=== PATIENT | female | born 1945 | race Caucasian/White ===

== ENCOUNTER → 2016-02-23 | Outpatient (CLI) | payer BC ==
[~2016-02-23] MED LIST: CALC1CAP36 PO; ERGO500037 PO; LPT10 PO; PLV75 PO; VERA360C2 PO
--- NOTE | 2016-02-23 09:36 | DIAGNOSTIC IMAGING REPORT ---
CT SCAN OF THE CHEST WITHOUT IV CONTRAST CLINICAL HISTORY: Thoracic aortic aneurysm. COMPARISON STUDY: Chest CT scans dated 02/24/2015 and 01/06/2013. TECHNIQUE: CT scan of the thorax was performed from the thoracic inlet to the upper abdomen. Images are reviewed in the axial, sagittal, and coronal planes. IV contrast was not administered for this examination as per the referring clinician. CT DOSE: 257.79 mGy.cm FINDINGS: Thyroid: Atrophic. A subcentimeter nodule is noted in the left lobe. Thoracic aorta: There is mild ectasia of the ascending thoracic aorta which measures up to 4.4 cm in diameter. The remainder of the thoracic aorta is normal in caliber. The mid arch measures up to 2.9 cm, and the descending thoracic aorta measures up to 2.9 cm. The arch demonstrates 4-vessel variant anatomy. No intramural hematoma is identified. Heart: The heart is normal in size and without pericardial effusion. There are scattered coronary artery calcifications. Lungs and pleural spaces: There is no airspace consolidation or pleural effusion. A 3 mm nodule at the left lung base as seen on image #253. This is unchanged from 2013 and of doubtful significance. The trachea and central airways are clear. Mediastinum: There is no mediastinal lymphadenopathy. Samanta: Not well assessed without IV contrast. Axillae: There is no axillary lymphadenopathy. Upper abdomen: Surgical clips are present in the left retroperitoneal space. A 10 mm cyst is noted in the right lobe of the liver. There are calcified splenic granulomas. Partially visualized upper abdominal viscera is otherwise grossly unremarkable. Skeletal structures: The skeletal structures are osteopenic. Mild degenerative change and scoliosis are identified in the thoracic spine. No lytic or blastic bony lesions are seen. IMPRESSION: 1. There is ectasia of the ascending thoracic aorta which measures up to 4.4 cm in diameter. This has not significantly changed dating back to 2012. 2. The remainder of the thoracic aorta is normal in caliber. 3. The lungs are clear. 4. Additional changes as above. Electronically signed by: Skyler Hernandez M.D. 02/23/2016 9:34 AM Dictated Date/Time: 02/23/2016 9:22 AM
== END | disposition home or self-care (01) ==
LOC: C.CTS 08:55
PROVIDERS: ATTEND Surgery Vascular Surgery
DX: I71.2 Thoracic aortic aneurysm, without rupture (principal)

== ENCOUNTER 2016-03-20 08:24 | Day surgery (SDC) | payer BC ==
[2016-03-06 08:16] VITALS: BMI 29.0
--- NOTE | 2016-03-06 08:54 | PAT Medication Instructions ---
Service Date Mar 06, 2016. Current Home Medication List Atorvastatin (Atorvastatin Calcium), 10 MG PO QPM Clopidogrel Bisulfate (Clopidogrel), 75 MG PO QAM Ergocalciferol (Vitamin D 07864 Unit), 50,000 UNIT PO 1XMONTH Verapamil Hcl (Verapamil Hcl Sr), 360 MG PO QPM Medication Instructions For Your Scheduled Surgery Clopidogrel Bisulfate (Clopidogrel), 75 MG PO QAM (hold 7 days prior to surgery per PCP instructions) Ergocalciferol (Vitamin D 31335 Unit), 50,000 UNIT PO 1XMONTH (continue as usual ) - Take the following medications as scheduled the night before surgery: Verapamil Hcl (Verapamil Hcl Sr), 360 MG PO QPM Atorvastatin (Atorvastatin Calcium), 10 MG PO QPM If you have any questions please call us at [phone] or [phone] ( [facility]) or [phone]
[~2016-03-20] VITALS: Ht 162.6 cm; Wt 75.8 kg
[~2016-03-20 08:24] MED LIST changes: -CALC1CAP36 PO; +CLINDAMYCIN IV 900 MG in DEXTROSE 5% ADD-VANTAGE 100ML 100 ML IV SCH; +LACTATED RINGER'S 1000ML 1,000 ML IV SCH
[2016-03-20 08:56] VITALS: BP 153/100; PULSE 85; TEMP 36.7; O2SAT 97; Ht 162.6 cm; Wt 75.8 kg
[2016-03-20] MEDS ORDERED: FENTANYL CITRATE INJ 50 MCG/1 ML 2 ML VIAL ONE ×2 (09:44→11:16)
[2016-03-20] MEDS ORDERED: MIDAZOLAM HCL 1 MG/ML 2ML VIAL ONE ×2 (09:44→09:45)
--- NOTE | 2016-03-20 10:09 | History & Physical Bridge Note ---
H&P Re-Evaluation Bridge Note: I have examined the patient, reviewed the History & Physical and in the interval since the performance of the History & Physical I have noted the following changes of clinical significance: No changes noted
[2016-03-20] MEDS ORDERED: LIDOCAINE HCL 1% 20 ML VIAL ONE (10:18)
[2016-03-20] MEDS ORDERED: BUPIVACAINE 0.5 % 5 MG/1 ML MPF 30ML VIAL ONE (10:18)
[2016-03-20] MEDS ORDERED: FENTANYL CITRATE INJ 50 MCG/1 ML 2 ML VIAL IV PRN (10:30)
[2016-03-20] MEDS ORDERED: ONDANSETRON INJ 2 MG/ML 2 ML VIAL IV PRN ×2 (10:30→12:00)
[2016-03-20] MEDS ORDERED: HYDROmorphone INJ 1 MG/ML SYR IV PRN (10:30)
[2016-03-20] MEDS ORDERED: ATROPINE SULFATE 0.1 MG/ML 5ML SYR IV PRN (10:30)
[2016-03-20] MEDS ORDERED: EpHEDrine SULFATE INJ 50 MG/ML AMP IV PRN (10:30)
[2016-03-20] MEDS ORDERED: LABETALOL HCL IV 5 MG/ML 20ML IV PRN (10:30)
[2016-03-20] MEDS ORDERED: MEPERIDINE HCL 25 MG/ML CARP IV PRN (10:30)
[2016-03-20] MEDS ORDERED: PROPOFOL IV EMULSION 10 MG/ML 20 ML VIAL IV ONE ×2 (11:18→11:36)
[2016-03-20] MEDS ORDERED: LIDOCAINE HCL 2% 2 ML VIAL (20MG/ML) ONE (11:19)
[2016-03-20] MEDS ORDERED: EpHEDrine SULFATE 50MG/5ML SYR ONE (11:19)
[2016-03-20] MEDS ORDERED: ONDANSETRON INJ 2 MG/ML 2 ML VIAL ONE (11:37)
[2016-03-20] MEDS ORDERED: SODIUM CHLORIDE 0.9% 1000ML 1,000 ML IV SCH (11:47)
--- NOTE | 2016-03-20 11:47 | [facility] Post Operative Brief Note ---
Immediate Operative Summary Operative Date Mar 20, 2016. Pre-Operative Diagnosis left inguinal hernia Post-Operative Diagnosis left inguinal hernia Procedure(s) Performed Left Inguinal Hernia Repair Surgeon Dr. Akash Carrasco Compensation And Benefits Manager Surgeon(s) Ivette Astudillo PA-C Estimated Blood Loss 10ML Findings See dictation Specimens none per surgeon Dr. Akash Carrasco Drains None Anesthesia General Complication(s) None Disposition Recovery Room / PACU
[2016-03-20] MEDS ORDERED: BUPIVACAINE 0.5 % 5 MG/1 ML MPF 30ML VIAL INJ ONE (11:48)
--- NOTE | 2016-03-20 11:51 | Discharge Instructions ---
Discharge Instructions Admission Reason for Admission: Left Inguinal Hernia Discharge Discharge Diagnosis / Problem: Same Discharge Goals Goal(s): Decrease discomfort Activity Recommendations Activity Limitations: per Instructions/Follow-up section Lifting Limitations: no more than 10 pounds Shower/Bathe: tomorrow (Shower only) . Current Hospital Diet Patient's current hospital diet: Discharge Diet Recommended Diet: Regular Diet Procedures Procedures Performed: Left Inguinal Hernia Repair Pending Studies Studies pending at discharge: no Medical Emergencies . Who to Call and When: Medical Emergencies: If at any time you feel your situation is an emergency, please call 911 immediately. . Non-Emergent Contact Non-Emergency issues call your: Primary Care Provider, Surgeon Call Non-Emergent contact if: your pain is worsening, wound has increased redness, wound has increased pain . "Provider Documentation" section prepared by Akash Carrasco. VTE Core Measure Inpt VTE Proph given/why not?: Other Anticoagulation (Clopidogrel)
[2016-03-20] MEDS ORDERED: MoRPHine SULFATE 4 MG/ML 1 ML CARP\\VIAL IV PRN (12:00)
[2016-03-20] MEDS ORDERED: OXYCODONE/ACETAMINOPHEN 5-325 TAB PO PRN (12:00)
--- NOTE | 2016-03-20 12:12 | OPERATIVE REPORT ---
DATE OF OPERATION: 03/20/2016 PREOPERATIVE DIAGNOSIS: Left inguinal hernia. POSTOPERATIVE DIAGNOSIS: Left indirect inguinal hernia. PROCEDURE: Repair of left indirect inguinal hernia. SURGEON: Dr. Carrasco. DIRECTOR OF COMMUNITY CENTER: Brandi Astudillo PA-C. FINDINGS: The patient had an indirect inguinal hernia that was moderate in size. They was attenuation of the floor of the canal, but no true direct component. TECHNIQUE: The patient was given a general anesthetic, and the area was prepped and draped in usual sterile fashion. Left inguinal incision was made, carried down through the subcutaneous tissue until the external oblique fascia was identified. A small incision was made in the external oblique and the underlying structures were off its undersurface and it was opened through the external ring. It was also opened superolaterally for a distance as well. The inguinal space was established and the hernia was identified. The hernia was away from the floor of the canal and the surrounding structures using blunt and cautery dissection where appropriate until it was freed to just inside the internal ring. It was placed into its anatomic position. The round ligament was identified. It was clamped proximally and distally and removed. Each end was ligated with a 3-0 Vicryl tie. The floor of the canal was oversewn using a running 0 PDS and then a piece of mesh was placed into the floor of the canal and sewn to the anterior surface of the internal oblique medially, tissue over the pubic bone inferiorly, and to the shelving border of the inguinal ligament laterally. The external oblique was closed over that using a running 2-0 Vicryl. The deep subcutaneous tissue was closed with running 2-0 Vicryl. The superficial subcutaneous tissue was closed with running 3-0 Vicryl and skin was closed with 4-0 Monocryl in a running subcuticular fashion. The skin was anesthetized with 0.5% Marcaine. The skin was cleansed, dried, benzoin placed, Steri-Strips applied. Estimated blood loss was 5 mL. Sponge, needle and instrument counts were correct prior to closure. The patient tolerated the surgical procedure without complication and was transferred to recovery. I attest to the content of the Intraoperative Record and any orders documented therein. Any exceptions are noted below. SILVIOD
[2016-03-20 12:40] VITALS: BP 106/69; PULSE 72; TEMP 36.5; O2SAT 94
--- NOTE | 2016-03-20 12:54 | Anesthesiology Progress Note ---
Anesthesia Post Op Note Date & Time Mar 20, 2016 at 12:55 Vital Signs Pain Intensity: 0 Vital Signs Past 12 Hours Date Time Temp Pulse Resp B/P Pulse Ox O2 Delivery O2 Flow Rate FiO2 03/20/16 12:40 36.5 72 18 106/69 94 Room Air 4 03/20/16 12:25 74 13 102/65 95 Room Air 03/20/16 12:15 76 18 108/70 99 Nasal Cannula 4 03/20/16 12:05 77 16 106/65 99 Nasal Cannula 4 03/20/16 11:56 37.0 83 12 106/62 93 Nasal Cannula 4 03/20/16 08:56 36.7 85 20 153/100 97 Room Air Notes Mental Status: alert / awake / arousable, participated in evaluation Pt Amnestic to Procedure: Yes Nausea / Vomiting: adequately controlled Pain: adequately controlled Airway Patency, RR, SpO2: stable & adequate BP & HR: stable & adequate Hydration State: stable & adequate Anesthetic Complications: no major complications apparent
[2016-03-20 13:10] VITALS: BP_SYST 105; BP_SYST 106; BP_DIAS 68; BP_DIAS 69; PULSE 70; PULSE 72; TEMP 36.5; O2SAT 93; O2SAT 94
[2016-03-20 13:50] VITALS: BP 93/66; PULSE 69; O2SAT 95
== END 2016-03-20 14:20 | disposition home or self-care (01) ==
LOC: C.ACU 08:24
PROVIDERS: ATTEND Surgery
DX: K40.90 Unilateral inguinal hernia, without obstruction or gangrene, not specified as recurrent (principal); E78.00 Pure hypercholesterolemia, unspecified; I10 Essential (primary) hypertension; I71.4 Abdominal aortic aneurysm, without rupture; Z86.73 Personal history of transient ischemic attack (TIA), and cerebral infarction without residual deficits

== ENCOUNTER → 2016-05-02 | Outpatient (CLI) | payer BC ==
[~2016-05-02] MED LIST changes: -CLINDAMYCIN IV 900 MG in DEXTROSE 5% ADD-VANTAGE 100ML 100 ML IV SCH; -LACTATED RINGER'S 1000ML 1,000 ML IV SCH
[2016-05-02 15:47] LABS: HEMATOCRIT 37.4 % (37-47); MEAN CELL VOLUME 91.4 fL (80-100); MEAN CORPUSCULAR HEMOGLOBIN 30.3 pg (25-34); MEAN CORPUSCULAR HGB CONC 33.2 g/dl (32-36); MEAN PLATELET VOLUME 9.9 fL (7.4-10.4); PLATELET COUNT 230 K/uL (130-400); RED BLOOD COUNT 4.09 M/uL (4.2-5.4); WHITE BLOOD COUNT 3.72 K/uL (4.8-10.8)
[2016-05-02 16:01] LABS: BLOOD UREA NITROGEN 20 mg/dl (7-18); BUN/CREATININE RATIO 16.4 (10-20); CARBON DIOXIDE 29 mmol/L (21-32); CHLORIDE 105 mmol/L (98-107); GLUCOSE 131 mg/dl (70-99); PHOSPHORUS 3.6 mg/dl (2.5-4.9); SODIUM 140 mmol/L (136-145); URINE APPEARANCE CLEAR (CLEAR); URINE BILIRUBIN NEG (NEG); URINE COLOR DK YELLOW; URINE NITRITE NEG (NEG); URINE PH 5.5 (4.5-7.5); URINE SPECIFIC GRAVITY 1.029 (1.000-1.030); UROBILINOGEN NEG (NEG)
[2016-05-02 16:04] LABS: MANUAL MICROSCOPIC REQUIRED? NO; REVIEW REQ? NO
[2016-05-02 16:13] LABS: URINE PROTIEN/CREAT RATIO 0.1 (0-0.2); URINE TOTAL PROTEIN 12.9 mg/dl (0-11.9)
== END | disposition home or self-care (01) ==
LOC: C.LAB1850 14:26
PROVIDERS: ATTEND Internal Medicine Nephrology
DX: N25.81 Secondary hyperparathyroidism of renal origin (principal); I12.9 Hypertensive chronic kidney disease with stage 1 through stage 4 chronic kidney disease, or unspecified chronic kidney disease; N18.3 Chronic kidney disease, stage 3 (moderate); D64.9 Anemia, unspecified

== ENCOUNTER → 2016-07-24 | Outpatient (CLI) | payer BC ==
--- NOTE | 2016-07-28 12:25 | CODING QUERY MEDICAL NECESSITY ---
SUPPORTING DIAGNOSIS NEEDED A supporting diagnosis is required for the test/procedure performed on this patient in order for us to be reimbursed by the patient's insurance. Please provide a supporting diagnosis for the following test/procedure listed below next to the test name along with your signature. *If there is no additional diagnosis for this patient that would support the following test/procedure please document that below next to the test/procedure. Test(s)/Procedure(s) that require a supporting diagnosis: * DXA, BONE DENSITY AXIAL DIAGNOSIS: Provider Signature: Date: Thank you Brandi [facility] Information Management Once completed, please kindly fax back to [phone] For questions please call [phone]
== END | disposition home or self-care (01) ==
LOC: C.MAMM 12:55
PROVIDERS: ATTEND Family Medicine
DX: Z00.00 Encounter for general adult medical examination without abnormal findings (principal)

== ENCOUNTER → 2016-10-24 | Outpatient (CLI) | payer BC ==
--- NOTE | 2016-10-25 14:19 | MAMMOGRAPHY REPORT ---
BILATERAL DIGITAL SCREENING MAMMOGRAM WITH CAD: 10/24/2016 CLINICAL HISTORY: Routine screening. Patient has no complaints. TECHNIQUE: Bilateral CC and MLO views were obtained. Current study was also evaluated with a Compute r Aided Detection (CAD) system. COMPARISON: Comparison is made to exams dated: 10/21/2015 mammogram, 10/16/2014 mammogram, 10/14/2013 mamm ogram, 09/24/2012 mammogram, 08/14/2011 mammogram, and 08/11/2010 mammogram - [facility] BREAST COMPOSITION: There are scattered areas of fibroglandular density in both breasts. FINDINGS: A focal asymmetry in the upper outer quadrant of the right breast is unchanged on prior brian mograms dating back to at least 05/17/2007, therefore likely benign. No new suspicious mass, archite ctural distortion or cluster of microcalcifications is seen. IMPRESSION: ACR BI-RADS CATEGORY 1: NEGATIVE There is no mammographic evidence of malignancy. A 1 year screening mammogram is recommended. The pa tient will receive written notification of the results. Approximately 10% of breast cancers are not detected with mammography. A negative mammographic report should not delay biopsy if a clinically suggestive mass is present. Saranya Payton M.D. ay/:10/24/2016 16:05:32 Guard Chief: Camelia Lovell, [facility] letter sent: Normal 1/2 BI-RADS Code: ACR BI-RADS Category 1: Negative
== END | disposition home or self-care (01) ==
LOC: C.MAMM 09:43
PROVIDERS: ATTEND Obstetrics & Gynecology
DX: Z12.31 Encounter for screening mammogram for malignant neoplasm of breast (principal)

== ENCOUNTER → 2016-10-30 | Outpatient (CLI) | payer BC | END | disposition home or self-care (01) | LOC: C.PAPS 13:41 | PROVIDERS: ATTEND Obstetrics & Gynecology | DX: Z12.4 Encounter for screening for malignant neoplasm of cervix (principal) ==

== ENCOUNTER → 2016-11-03 | Outpatient (CLI) | payer BC ==
--- NOTE | 2016-11-03 13:19 | DIAGNOSTIC IMAGING REPORT ---
C-SPINE ROUTINE 4 OR 5 VIEWS CLINICAL HISTORY: Chronic neck pain COMPARISON STUDY: No previous studies for comparison. FINDINGS: The prevertebral soft tissues are normal. No fractures or subluxations are visualized. There are moderate degenerative changes the C5-6 and C6-7 levels. There is bilateral foraminal encroachment due to uncinate spurring at the C5-6 and to a lesser extent the C6-7 levels. IMPRESSION: 1. No fractures or subluxations identified 2. Moderate degenerative changes the C5-6 and C6-7 levels. Electronically signed by: Pablo Cohen M.D. 11/03/2016 1:18 PM Dictated Date/Time: 11/03/2016 1:17 PM
== END | disposition home or self-care (01) ==
LOC: C.RAD 12:23
PROVIDERS: ATTEND Family Medicine
DX: M54.2 Cervicalgia (principal); G89.29 Other chronic pain

== ENCOUNTER → 2016-11-10 | Outpatient (CLI) | payer BC ==
[2016-11-10 15:05] LABS: HEMATOCRIT 39.9 % (37-47); MEAN CELL VOLUME 93.2 fL (80-100); MEAN CORPUSCULAR HEMOGLOBIN 31.5 pg (25-34); MEAN CORPUSCULAR HGB CONC 33.8 g/dl (32-36); MEAN PLATELET VOLUME 9.8 fL (7.4-10.4); PLATELET COUNT 208 K/uL (130-400); RED BLOOD COUNT 4.28 M/uL (4.2-5.4)
[2016-11-10 15:11] LABS: URINE APPEARANCE CLEAR (CLEAR); URINE BILIRUBIN NEG (NEG); URINE COLOR YELLOW; URINE EPITHELIAL CELL AUTO 0-5 /lpf (0-5); URINE NITRITE NEG (NEG); URINE PH 6.5 (4.5-7.5); URINE SPECIFIC GRAVITY 1.013 (1.000-1.030); UROBILINOGEN NEG (NEG)
[2016-11-10 15:12] LABS: MANUAL MICROSCOPIC REQUIRED? NO; REVIEW REQ? NO
[2016-11-10 15:32] LABS: BLOOD UREA NITROGEN 16 mg/dl (7-18); BUN/CREATININE RATIO 16.7 (10-20); CALCIUM 9.5 mg/dl (8.5-10.1); CARBON DIOXIDE 26 mmol/L (21-32); CHLORIDE 106 mmol/L (98-107); CREATININE 0.98 mg/dl (0.60-1.20); GLUCOSE 81 mg/dl (70-99); POTASSIUM 3.5 mmol/L (3.5-5.1); SODIUM 140 mmol/L (136-145)
[2016-11-10 15:33] LABS: PHOSPHORUS 3.3 mg/dl (2.5-4.9)
[2016-11-10 15:38] LABS: URINE TOTAL PROTEIN < 5.0 mg/dl (0-11.9)
== END | disposition home or self-care (01) ==
LOC: C.LAB1850 13:55
PROVIDERS: ATTEND Internal Medicine Nephrology
DX: N25.81 Secondary hyperparathyroidism of renal origin (principal); N18.3 Chronic kidney disease, stage 3 (moderate); I12.9 Hypertensive chronic kidney disease with stage 1 through stage 4 chronic kidney disease, or unspecified chronic kidney disease; D64.9 Anemia, unspecified

== ENCOUNTER → 2017-05-08 | Outpatient (CLI) | payer BC ==
[2017-05-08 13:22] LABS: HEMATOCRIT 37.7 % (37-47); MEAN CELL VOLUME 93.5 fL (80-100); MEAN CORPUSCULAR HEMOGLOBIN 32.3 pg (25-34); MEAN CORPUSCULAR HGB CONC 34.5 g/dl (32-36); MEAN PLATELET VOLUME 9.5 fL (7.4-10.4); PLATELET COUNT 206 K/uL (130-400); RED CELL DISTRIBUTION WIDTH CV 12.5 % (11.5-14.5); RED CELL DISTRIBUTION WIDTH SD 42.9 fL (36.4-46.3)
[2017-05-08 13:57] LABS: ALBUMIN 3.7 gm/dl (3.4-5.0); BLOOD UREA NITROGEN 23 mg/dl (7-18); CARBON DIOXIDE 29 mmol/L (21-32); CREATININE 1.01 mg/dl (0.60-1.20); GLUCOSE 102 mg/dl (70-99); POTASSIUM 3.9 mmol/L (3.5-5.1); SODIUM 137 mmol/L (136-145)
[2017-05-08 13:58] LABS: PHOSPHORUS 3.5 mg/dl (2.5-4.9)
== END ==
LOC: C.LAB1850 12:30
PROVIDERS: ATTEND Internal Medicine Nephrology
DX: N25.81 Secondary hyperparathyroidism of renal origin (principal); N18.3 Chronic kidney disease, stage 3 (moderate); D64.9 Anemia, unspecified; I10 Essential (primary) hypertension